=== PATIENT | female | born 2000 | race Two or more races ===

== ENCOUNTER 2021-06-26 11:14 | Emergency (ER) | payer OTHER ==
[2021-06-26 11:31] VITALS: BP 131/83; PULSE 83; TEMP 98.4; BMI 21.5
[2021-06-26] MEDS ORDERED: IBUPROFEN 600 MG TABLET (FP) PO ONE ×2 (11:52→11:54)
[2021-06-26] MEDS ORDERED: DIPHTH,PERTUSS(ACELL),TET 0.5 ML DISP.SYRIN IM ONE ×2 (11:52→11:54)
== END 2021-06-26 12:31 | disposition home or self-care (01) ==
LOC: JERFT 11:14
PROC: 3E0234Z Introduction of Serum, Toxoid and Vaccine into Muscle, Percutaneous Approach (ICD-10-PCS; principal; 2021-06-26)
DX: S61.309A Unspecified open wound of unspecified finger with damage to nail, initial encounter (principal); S69.92XA Unspecified injury of left wrist, hand and finger(s), initial encounter; Y04.8XXA Assault by other bodily force, initial encounter; Y07.410 Brother, perpetrator of maltreatment and neglect
CPT/HCPCS: 73140-TC-LT-FY; 90471; 90715; 99284-25

== ENCOUNTER 2021-09-08 11:02 | Emergency (ER) | payer OTHER ==
[2021-09-08 11:16] VITALS: BP 129/77; PULSE 71; TEMP 97.6; BMI 22.6
[2021-09-08] MEDS ORDERED: IBUPROFEN 600 MG TABLET (FP) PO ONE ×2 (12:01→12:03)
== END 2021-09-08 12:22 | disposition home or self-care (01) ==
LOC: JERFT 11:02
DX: H61.22 Impacted cerumen, left ear (principal)
CPT/HCPCS: 99283-25

== ENCOUNTER 2023-09-22 09:43 | Emergency (ER) | payer OTHER ==
[2023-09-22 09:51] VITALS: BP 115/70; PULSE 78; RESP 18; TEMP 98; BMI 19.6
[2023-09-22 10:56] LABS: BASO % 0.4 % (0-2.0); EOS % 0.4 % (0-4.5); HEMATOCRIT 38.8 % (32.4-45.2); HEMOGLOBIN 12.8 GM/dL (10.7-15.3); LYMPH % 34.6 % (8-40); MCH 26.5 pg (25.7-33.7); MCHC 32.9 g/dl (32.0-36.0); MEAN CELL VOLUME 80.5 fl (80-96); MONO % 10.6 % (3.8-10.2); PLATELET COUNT 279 10^3/uL (134-434); RBC 4.82 M/mm3 (3.60-5.2); RDW 17.9 % (11.6-15.6); WHITE BLOOD COUNT 3.8 K/mm3 (4.0-10.0)
[2023-09-22] MEDS ORDERED: ACETAMINOPHEN INJECTION 100 ML IVPB ONE ×2 (11:33→11:34)
[2023-09-22] MEDS: ACETAMINOPHEN 1000 MG/100 ML BAG IVPB ONE (11:38)
[2023-09-22] MEDS ORDERED: KETOROLAC TROMETHAMINE 15 MG/ML VIAL ONE (11:39)
[2023-09-22] MEDS: KETOROLAC TROMETHAMINE 30 MG/1 ML VIAL IVPUSH ONE (11:42)
[2023-09-22 11:46] LABS: ALBUMIN 4.1 g/dl (3.4-5.0); BILIRUBIN,TOTAL 0.9 mg/dL (0.2-1); BLOOD UREA NITROGEN 10.9 mg/dL (7-18); CREATININE 0.8 mg/dL (0.55-1.3); POTASSIUM 4.2 mmol/L (3.5-5.1); TOT PROT 8.2 g/dl (6.4-8.2)
[2023-09-22 12:37] LABS: ACTIVATED PTT 27.2 SECONDS (25.2-36.5); INR 1.01 (0.83-1.09); PROTHROMBIN TIME (PATIENT) 11.7 SEC (9.7-13.0)
== END 2023-09-22 13:05 | disposition home or self-care (01) ==
LOC: JER 09:43
PROC: 3E030NZ Introduction of Analgesics, Hypnotics, Sedatives into Peripheral Vein, Open Approach (ICD-10-PCS; principal; 2023-09-22)
PROC: 3E0303Z Introduction of Anti-inflammatory into Peripheral Vein, Open Approach (ICD-10-PCS; 2023-09-22)
DX: R07.9 Chest pain, unspecified (principal); R06.09 Other forms of dyspnea; R29.898 Other symptoms and signs involving the musculoskeletal system
CPT/HCPCS: 36415; 71046-TC-FY; 80053; 84484; 84703; 85025; 85379; 85610; 85730; 99285-25; J0131